=== PATIENT | female | born 1935 | race Caucasian/White ===

== ENCOUNTER 2017-12-11 09:04 | Emergency (ER) | payer MEDICARE ==
[~2017-12-11] VITALS: Ht 157.5 cm; Wt 80.0 kg
[~2017-12-11 09:04] MED LIST: AROM25TA PO; CO Q 10 PO; FISH1000 PO; GARL10002 OR; GLUCTAB6 PO; IBUP200C OR; MULTTAB6 PO; PRESCAP PO
[2017-12-11 09:09] VITALS: BP 134/65; PULSE 86; RESP 17; TEMP 97.5; O2SAT 97
[2017-12-11] MEDS ORDERED: tumeric PO (09:25)
[2017-12-11] MEDS ORDERED: OMEG100010 (09:25)
[2017-12-11] MEDS ORDERED: ERGO2000 PO (09:25)
[2017-12-11] MEDS ORDERED: OCUVTAB4 PO (09:25)
[2017-12-11] MEDS ORDERED: VITA100021 SL (09:25)
[2017-12-11] MEDS ORDERED: GLUC500T4 PO (09:25)
--- NOTE | 2017-12-11 09:47 | PD ---
HPI Chief Complaint: Abdominal Pain Time Seen by Provider: 09:29 Travel History International Travel<30 days: No Contact w/Intl Traveler<30days: No Traveled to known affect area: No History of Present Illness HPI The patient was seen and examined in the presence of the nurse. This patient complains of abdominal pain. Duration 2 days. It is intermittent. No vomiting or diarrhea or fever. Pain is located in the left lower quadrant. She has had diverticulitis twice before and this feels the exact same. She is pretty convinced she is having another flare of it. No alleviating factors. No exacerbating factors. PFSH Past Medical History Arthritis: Yes Autoimmune Disease: No Blood Disorders: No Cancer: Yes (RIGHT BREAST) Cardiovascular Problems: No Cerebrovascular Accident: No Diabetes: No Diverticulitis: Yes Gastrointestinal Disorders: No Glaucoma: No Genitourinary: No Headaches: Yes Hepatitis: No Hiatal Hernia: No Hypertension: No Medical other: Yes (arthritis) Musculoskeletal: Yes Neurologic: Yes Psychiatric: No Respiratory: No Seizures: No Thyroid Disease: No Influenza Vaccination: Yes Past Surgical History Abdominal Surgery: No AICD: No Cardiac Surgery: No Ear Surgery: No Endocrine Surgery: No Eye Surgery: Yes (CATARACT EXTRACTION RIGHT EYE) Genitourinary Surgery: No Gynecologic Surgery: Yes (D & C, CERVICAL CONIZATION) Neurologic Surgery: Yes (brain aneursym CLIPPING) Oral Surgery: No Pacemaker: No Thoracic Surgery: No Other Surgery: Yes (lumpectomy, lymphectomy right breast) Social History Alcohol Use: No Tobacco Use: No Substance Use: No Allergies-Medications (Allergen,Severity, Reaction): Coded Allergies: No Known Allergies (Verified Adverse Reaction, Unknown, 12/11/17) Reported Meds & Prescriptions Reported Meds & Active Scripts Active Reported Vitamin B-12 (Cyanocobalamin) 1,000 Mcg Subl 1,000 Mcg SL DAILY [place] 3 1000 mg ([place]-3 Fatty Acids) 300 Mg-1,000 Mg Cap [tumeric] 2 Cap PO DAILY Vitamin D2 (Ergocalciferol) 2,000 Unit Tab 2,000 Units PO DAILY Glucosamine-Chondroitin 500-400 Mg Tab 2 Tab PO DAILY Preservision Areds (Multiple Vitamins W/ Minerals) 1 Tab 2 Tab PO DAILY Review of Systems General / Constitutional: No: Fever Eyes: No: Visual changes HENT: No: Headaches Cardiovascular: No: Chest Pain or Discomfort Respiratory: No: Shortness of Breath Gastrointestinal: Positive: Nausea, Abdominal Pain Genitourinary: No: Dysuria Musculoskeletal: No: Pain Skin: No Rash Neurologic: No: Weakness Psychiatric: No: Depression Endocrine: No: Polydipsia Hematologic/Lymphatic: No: Easy Bruising Physical Exam Narrative GENERAL: Well-nourished, well-developed patient in no apparent distress. SKIN: Focused skin assessment reveals no rash and nodules. Skin is Warm and dry. HEAD: Atraumatic. Normocephalic. EYES: Pupils equal and round. No scleral icterus. No injection or drainage. ENT: No nasal bleeding or discharge. Mucous membranes pink and moist. NECK: Trachea midline. No JVD. CARDIOVASCULAR: Regular rate and rhythm. No murmur appreciated. RESPIRATORY: No accessory muscle use. Clear to auscultation. Breath sounds equal bilaterally. GASTROINTESTINAL: Abdomen soft, left lower quadrant is tender without rebound or guarding, nondistended. Hepatic and splenic margins not palpable. MUSCULOSKELETAL: No obvious deformities. No clubbing. No cyanosis. No edema. NEUROLOGICAL: Awake and alert. No obvious cranial nerve deficits. Motor grossly within normal limits. Normal speech. PSYCHIATRIC: Appropriate mood and affect; insight and judgment normal. Data Data Last Documented VS Vital Signs Date Time Temp Pulse Resp B/P (MAP) Pulse Ox O2 Delivery O2 Flow Rate FiO2 12/11/17 13:35 83 17 140/98 (112) 98 Room Air 12/11/17 09:09 97.5 Orders Orders Complete Blood Count With Diff (12/11/17 09:39) Basic Metabolic Panel (Bmp) (12/11/17 09:39) Iv Access Insert/Monitor (12/11/17 09:39) Labs Laboratory Tests Test 12/11/17 09:40 White Blood Count 8.6 TH/MM3 Red Blood Count 4.38 MIL/MM3 Hemoglobin 13.7 GM/DL Hematocrit 40.2 % Mean Corpuscular Volume 91.7 FL Mean Corpuscular Hemoglobin 31.4 PG Mean Corpuscular Hemoglobin Concent 34.2 % Red Cell Distribution Width 13.3 % Platelet Count 135 TH/MM3 Mean Platelet Volume 8.5 FL Neutrophils (%) (Auto) 75.9 % Lymphocytes (%) (Auto) 15.4 % Monocytes (%) (Auto) 6.9 % Eosinophils (%) (Auto) 1.4 % Basophils (%) (Auto) 0.4 % Neutrophils # (Auto) 6.5 TH/MM3 Lymphocytes # (Auto) 1.3 TH/MM3 Monocytes # (Auto) 0.6 TH/MM3 Eosinophils # (Auto) 0.1 TH/MM3 Basophils # (Auto) 0.0 TH/MM3 CBC Comment DIFF FINAL Differential Comment Blood Urea Nitrogen 10 MG/DL Creatinine 0.77 MG/DL Random Glucose 124 MG/DL Calcium Level 9.1 MG/DL Sodium Level 142 MEQ/L Potassium Level 3.3 MEQ/L Chloride Level 107 MEQ/L Carbon Dioxide Level 24.6 MEQ/L Anion Gap 10 MEQ/L Estimat Glomerular Filtration Rate 72 ML/MIN MDM Medical Decision Making Medical Screen Exam Complete: Yes Emergency Medical Condition: Yes Medical Record Reviewed: Yes Differential Diagnosis Diverticulitis, colitis, ileus Narrative Course I have reviewed the patient's electronic medical record. IV placed and labs sent CBC and metabolic profiles are normal Patient has a benign abdomen. Symptoms are minimal. We have discussed options and opted for empiric treatment of diverticulitis based on her recurrent but benign presentation I do not think she needs emergent imaging I have written a course of Cipro and Flagyl. She declines pain and nausea medicine Diagnosis Primary Impression: Acute left lower quadrant pain Additional Impression: History of diverticulitis Med/Other Pt SpecificInfo: Prescription(s) given Disposition: 01 DISCHARGE HOME Condition: Stable Isak Lutz MD Dec 11, 2017 09:47
[2017-12-11 10:00] LABS: AUTOMATED NEUTROPHIL # 6.5 TH/MM3 (1.8-7.7); BASOPHIL % 0.4 % (0.0-2.0); EOSINOPHIL # 0.1 TH/MM3 (0-0.4); EOSINOPHIL % 1.4 % (0.0-4.0); HEMATOCRIT 40.2 % (35.0-46.0); HEMOGLOBIN 13.7 GM/DL (11.6-15.3); LYMPH % 15.4 % (9.0-44.0); LYMPHOCYTE # 1.3 TH/MM3 (1.0-4.8); MEAN CELL VOLUME 91.7 FL (80.0-100.0); MEAN CORPUSCULAR HEMOGLOBIN 31.4 PG (27.0-34.0); MEAN CORPUSCULAR HGB CONC 34.2 % (32.0-36.0); MEAN PLATELET VOLUME 8.5 FL (7.0-11.0); MONO % 6.9 % (0.0-8.0); MONOCYTE # 0.6 TH/MM3 (0-0.9); NEUT % 75.9 % (16.0-70.0); PLATELET COUNT 135 TH/MM3 (150-450); RED BLOOD COUNT 4.38 MIL/MM3 (4.00-5.30); RED CELL DISTRIBUTION WIDTH 13.3 % (11.6-17.2); WHITE BLOOD COUNT 8.6 TH/MM3 (4.0-11.0)
[2017-12-11 10:34] LABS: BICARBONATE 24.6 MEQ/L (21.0-32.0); CALCIUM 9.1 MG/DL (8.5-10.1); CREATININE 0.77 MG/DL (0.50-1.00)
[2017-12-11 13:35] VITALS: BP 140/98; PULSE 83; RESP 17; O2SAT 98
[2017-12-11] MEDS ORDERED: METR-1 PO (15:01)
[2017-12-11] MEDS ORDERED: CIPR-9 PO (15:01)
[2017-12-12] MEDS ORDERED: TURM500C3 PO (10:48)
== END 2017-12-11 15:10 | disposition home or self-care (01) ==
LOC: NEPC 09:04
DX: R10.32 Left lower quadrant pain (principal); M19.90 Unspecified osteoarthritis, unspecified site; Z87.19 Personal history of other diseases of the digestive system; Z79.899 Other long term (current) drug therapy
CPT/HCPCS: 80048; 85025; 99283